=== PATIENT | male | born 1995 | race Caucasian/White ===

== ENCOUNTER 2025-07-01 10:24 | Emergency (ER) | payer OTHER, SELFPAY ==
--- NOTE | 2025-07-01 10:37 | ED_ITS ---
HPI - Eye Problem General Chief complaint: Eye Problems Stated complaint: FB R EYE Time Seen by Provider: 07/01/25 10:45 Source: patient Mode of arrival: ambulatory Limitations: no limitations History of Present Illness HPI Narrative: Vimal is a 29-year-old male patient presenting to the clinic today with complaints of up possible metal foreign body in his right eye. 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 Denies any pain, watering, photophobia, or visual changes. Related Data Allergies Allergy/AdvReac Type Severity Reaction Status Date / Time No Known Allergies Allergy Verified 07/01/25 10:39 Review of Systems Review of Systems: Pertinent positives per HPI. Patient denies any fever, chills, rash, headache, visual changes, dizziness, cough, runny nose, sore throat, shortness of breath, chest pain, palpitations, nausea, vomiting, diarrhea, constipation, abdominal pain, or any urinary issues. PMFSH Comments At the time of my signature, I reviewed and agree with the nursing past medical, surgical, social, and family history. There is no relevant family history pertinent to the patient complaint. Exam Narrative: General: Well-developed, well nourished, in no apparent distress Head: Normocephalic, atraumatic Eyes: Pupils equally round and reactive to light bilaterally, EOM intact, sclera and conjunctive clear, no discharge, lids normal, foreign body to the right eye over the mid lateral iris at 3 oclock. Ears: TMs intact and clear, ear canals clear, no drainage, grossly hearing normal. Nose: Nares patent, no discharge, no inflammation, no sinus tenderness. Mouth: Oropharynx without lesions or masses, good dentition, MMM. Neck: Supple, trachea midline, no enlargement of anterior or posterior cervical nodes, no thyroid masses or goiter palpable. Cardio: Regular rate and rhythm, s1 and s2 normal, no murmur appreciated. Resp: Clear to auscultation bilaterally anteriorly and posteriorly, no rhonchi, rales, wheezing or rubs Course Course Emergency Course: Portions of this record may have been created with voice recognition software. Level of Care: Express Care Visit Vital Signs Vital signs: Vital Signs Temperature 36.4 C 07/01/25 10:40 Pulse Rate 93 07/01/25 10:40 Respiratory Rate 16 11/02/25 10:40 Blood Pressure 131/81 07/01/25 10:40 Pulse Oximetry 100 07/01/25 10:40 Temperature 36.4 C 07/01/25 10:40 Pulse Rate 93 07/01/25 10:40 Respiratory Rate 16 07/01/25 10:40 Blood Pressure 131/81 07/01/25 10:40 Pulse Oximetry 100 07/01/25 10:40 Vital signs reviewed Procedures Other Procedure Procedure 1: Other Procedure: Wood's lamp exam was performed-2 drop of topical tetracaine anesthetic was instilled with good anesthesia. Fluorescein stain of the right eye was performed without uptake of dye. No epithelial defect was noted. FB noted at 3oclock over the iris, NO ulcer or dendritic lesions. Upper lid was everted and no FB or lesions were noted. NO Jocy sign. Normal saline irrigation eye solution was performed and the patient tolerated the procedure well, no adverse reaction or complications. Noted visual acuity. Moist cotton tip applicator was used to no foreign body-not all the foreign body was removed as as part of the foreign body is imbedded into the corneal tissue. MDM - Eye Problem MDM Narrative Medical decision making narrative: At the time of visit patient is resting comfortably on the exam table. Patient appears to be nontoxic. Complaints of up possible metal foreign body in his right eye. 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 Denies any pain, watering, photophobia, or visual changes. On exam pupils equally round and reactive to light bilateral ly, EOM intact, sclera and conjunctive clear, no discharge, lids normal, foreign body to the right eye over the mid lateral iris at 3 oclock. Procedure: Wood's lamp exam was performed-2 drop of topical tetracaine anesthetic was instilled with good anesthesia. Fluorescein stain of the right eye was performed without uptake of dye. No epithelial defect was noted. FB noted at 3oclock over the iris, NO ulcer or dendritic lesions. Upper lid was everted and no FB or lesions were noted. NO Jocy sign. Normal saline irrigation eye solution was performed and the patient tolerated the procedure well, no adverse reaction or complications. Noted visual acuity Plan: I suspect patient has foreign body in the right eye. This was partially removed in the clinic today but I am unable to remove the rest of the foreign body as it is embedded in the cornea. Recommend follow-up with eye doctor in the next 48 hours instill polymyxin eyedrops as prescribed. May use artificial tears or saline to keep the eye irrigated. Supportive measures were discussed with the patient and they voiced understanding discharge instructions and agrees to treatment plan. Return precautions reviewed Differential Diagnosis Differential diagnosis: Likely corneal abrasion, conjunctivitis, acute iritis, corneal ulcer, ruptured globe and other (Foreign body in eye) Discharge Plan Discharge Clinical Impression: Foreign body in cornea, right eye, initial encounter Patient Disposition: Home Condition: Stable Instructions: Antibiotic Form, Eye Foreign Body (ED) Additional Instructions: Some right eye foreign body was removed from the right eye Instill polymyxin eyedrops as prescribed May take Tylenol/Motrin as needed for pain Follow-up with eye doctor or PCP soon as possible-call to schedule appointment on Wednesday-would be best to be seen within 48 hours Patient Language: Chadian Prescriptions: New polymyxin B sulf-trimethoprim 10,000 unit- 1 mg/mL drops 1 drp RIGHT EYE Q3H 7 Days Qty: 10 0RF Rx Instructions: while awake; do not exceed 6 doses in 24 hours Follow-up/Referrals: PHYSICIAN,[facility] [Primary Care Provider, Internal Medicine] Time of Disposition: 10:54 Quality NIHSS Nursing Documentation ED NIHSS nursing documentation: reviewed/agree
[2025-07-01 10:40] VITALS: BP 131/81; PULSE 93; RESP 16; TEMP 36.4; O2SAT 100
--- NOTE | 2025-07-01 11:25 | PC.NURSE ---
1046 Provider in to see patient for eye exam.
== END 2025-07-01 11:06 | disposition home or self-care (01) ==
PROVIDERS: Emergency Provider Nurse Practitioner Family
DX: T15.01XA Foreign body in cornea, right eye, initial encounter (principal); W44.8XXA Other foreign body entering into or through a natural orifice, initial encounter
CPT/HCPCS: 65220; 99203; A9270; G0463